=== PATIENT | male | born 1950 | race Caucasian/White ===

== ENCOUNTER 2021-07-22 22:40 | Inpatient (IN) | payer OTHER, MEDICAID ==
[~2021-07-22] VITALS: Ht 190.5 cm; Wt 113.4 kg
[~2021-07-22 22:40] MED LIST: AMIO200T66 PO; APIX5TAB PO; CARV25TA55 PO; CLOT15CR5 TP; FURO-149 PO; LISI20TA30 PO; THIA100T13 PO
[2021-07-22 23:07] VITALS: BP_SYST 135
--- NOTE | 2021-07-22 23:15 | NUR ---
Pt to bed 8 via EMS w/ c/o right hip pain s/p mechanical fall from 2nd step on stairs to ground. Normal skin color for rotation. Pt maintains full mobility of right leg. No external rotation or shortening of RLE
[2021-07-22 23:30] LABS: BASOPHILS % (AUTO) 0.4 % (0.0-2.0); EOSINOPHILS # (AUTO) 0.1 K/uL (0.0-0.4); EOSINOPHILS % (AUTO) 1.4 % (0.0-4.0); HEMATOCRIT 41.4 % (36-54); HEMOGLOBIN 14.3 g/dL (14.0-18.0); LYMPHOCYTES # (AUTO) 1.3 K/uL (1.0-5.5); LYMPHOCYTES % (AUTO) 16.3 % (20.5-51.5); MEAN CORPUSCULAR HEMOGLOBIN 30 pg (27-31); MEAN CORPUSCULAR HGB CONC 35 % (32-36); MEAN CORPUSCULAR VOLUME 88 fL (79.0-98.0); MONOCYTES # (AUTO) 0.4 K/uL (0.0-1.0); MONOCYTES % (AUTO) 4.6 % (1.7-9.3); NEUTROPHILS # (AUTO) 6.3 K/uL (1.8-7.7); NEUTROPHILS % (AUTO) 77.3 % (40.0-70.0); PLATELET COUNT (AUTO) 149 K/uL (130-430); RED BLOOD CELL COUNT(AUTO) 4.72 MIL/uL (4.2-6.2); RED CELL DISTRIBUTION WIDTH 14.1 % (9.0-15.0); WHITE BLOOD COUNT (AUTO) 8.2 K/uL (4.8-10.8)
--- NOTE | 2021-07-22 23:31 | NUR ---
Pt placed on crystal cutter. bed in low position. pulse oximetry on patient.
[2021-07-22 23:48] LABS: ANION GAP 6 (5-15); CALCIUM 8.1 mg/dL (8.4-11.0); CHLORIDE 104 mmol/L (98-107); CREATININE 0.96 mg/dL (0.55-1.30); GLUCOSE 150 mg/dL (70-99); POTASSIUM 3.6 mmol/L (3.5-5.1); SODIUM SERUM 139 mmol/L (136-145); UREA NITROGEN, BLOOD 17 mg/dL (8-21)
[2021-07-22 23:51] LABS: INR 1.1 (0.80-1.20); PROTHROMBIN TIME 11.8 SECS (9.5-12.5)
[2021-07-22 23:54] LABS: ALANINE AMINOTRANSFERASE 14 U/L (12-78); ALBUMIN 3.6 g/dL (3.4-4.8); ASPARTATE AMINOTRANSFERASE 12 U/L (10-37); TOTAL BILIRUBIN 1.2 mg/dL (0.0-1.0)
[2021-07-23] LABS: ALCOHOL, BLOOD < 3 mg/dL (<10)
[2021-07-23] MEDS ORDERED: MORPHINE 4 MG INJ. 4 MG/ML VIAL IVP ONE ×2 (02:15→04:15)
[2021-07-23] MEDS ORDERED: ONDANSETRON HCL 4 MG/2 ML VIAL IVP ONE (02:15)
[2021-07-23] MEDS ORDERED: MORPHINE 4 MG INJ. 4 MG/ML VIAL ONE (02:25)
[2021-07-23] MEDS ORDERED: D5NS 1,000 ML IV ONE (05:45)
--- NOTE | 2021-07-23 05:58 | NUR ---
Admit bed requested Patient will be admitted to care of Dr. Dawson Admitted to Tele unit. Diagnosis Hip Fracure Inpatient (Yes or No) yes Observation (Yes or No) no Orientation concerns or request close to nursing station (Yes or No) no Covid Status negative On vent or bipap no Isolation requirements no Needs a sitter no From Home (Yes or if No enter name of facility) yes Requires Dialysis (Yes or No) no Med Rec Completed (Yes of No) yes
[2021-07-23] MEDS ORDERED: MORPHINE 2 MG/ML INJ. SYRINGE IVP PRN ×2 (06:00→10:45)
--- NOTE | 2021-07-23 07:20 | NUR ---
Received report from YUNIOR Urias; assumed patient care at this time. Patient A/Ox4 and resting quietly. Vital signs within normal range. Pt aware his is awaiting a bed in tele. No acute distress noted.
[2021-07-23] MEDS ORDERED: guaiFENesin/DEXTROMETHORPHAN 10 ML UDC PO PRN (10:45)
[2021-07-23] MEDS ORDERED: ZOLPIDEM TARTRATE 5 MG TABLET PO PRN (10:45)
[2021-07-23] MEDS ORDERED: DOCUSATE SODIUM 100 MG/10 ML UDC PO PRN (10:45)
[2021-07-23] MEDS ORDERED: ONDANSETRON HCL 4 MG/2 ML VIAL IVP PRN (10:45)
[2021-07-23] MEDS ORDERED: FUROSEMIDE 40 MG TABLET PO ONE (11:00)
[2021-07-23] MEDS ORDERED: AMIODARONE HCL 200 MG TABLET PO ONE (11:00)
[2021-07-23] MEDS ORDERED: lisinopriL 20 MG TABLET PO ONE (11:00)
[2021-07-23] MEDS ORDERED: CARVEDILOL 25 MG TABLET (COREG) PO ONE (11:00)
[2021-07-23 11:34] LABS: INR 1.2 (0.80-1.20)
--- NOTE | 2021-07-23 11:39 | NUR ---
DR Sky at bedside.
[2021-07-23 11:43] LABS: ALANINE AMINOTRANSFERASE 20 U/L (12-78); ALBUMIN 3.6 g/dL (3.4-4.8); AMYLASE 36 U/L (0-100); ANION GAP 7 (5-15); ASPARTATE AMINOTRANSFERASE 11 U/L (10-37); CALCIUM 7.9 mg/dL (8.4-11.0); CHLORIDE 105 mmol/L (98-107); CHOLESTEROL 160 mg/dL (<200); CREATININE 0.82 mg/dL (0.55-1.30); GLUCOSE 132 mg/dL (70-99); HDL CHOLESTEROL 26 mg/dL (>45); LDL CHOLESTEROL 115 mg/dL (<100); LIPASE 71 U/L (73-393); PHOSPHORUS 3.3 mg/dL (2.7-4.5); POTASSIUM 4.2 mmol/L (3.5-5.1); SODIUM SERUM 141 mmol/L (136-145); TOTAL BILIRUBIN 1.5 mg/dL (0.0-1.0); TRIGLYCERIDES 90 mg/dL (30-150); UREA NITROGEN, BLOOD 15 mg/dL (8-21)
--- NOTE | 2021-07-23 12:00 | NUR ---
Placed call to OR and Dr Andrews re ETA for surgery and clarification re PO meds. Lasix to be held per Dr Andrews. Other meds to be administered PO with sips of water.
[2021-07-23 12:09] LABS: FREE T4 (FREE THYROXINE) 1.1 ng/dl (0.8-1.5); THYROID STIMULATING HORMONE 3.66 uIu/mL (0.36-3.74)
--- NOTE | 2021-07-23 12:18 | NUR ---
DR DAVIAL IN TO SEE PT FOR CONSULT
--- NOTE | 2021-07-23 12:23 | NUR ---
Dr Wylie at bedside
--- NOTE | 2021-07-23 13:19 | NUR ---
CONSULTATION PAGED/CALLED Reason for Consultation: [] R HIP FRACTURE Person Who was Notified: [] DR AB MCCALLUM Consulting Physician: [] DR AB MCCALLUM Contact Lens Manufacturer Specialty: [] ORTHO Ordering Physician: [] DR KWAN
[2021-07-23] MEDS: MORPHINE 4 MG INJ. 4 MG/ML VIAL IVP PRN ×3 (13:21→21:38)
[2021-07-23 13:30] VITALS: BP_SYST 151
--- NOTE | 2021-07-23 13:47 | NUR ---
Patient will be admitted to care of Dr Sky. Admitted to tele unit. Will go to room 117A. Belongings list completed. Complete and up to date summary report printed. Patient transport on gurney by RN. SBAR report to be given at bedside with opportunity for questions.
[2021-07-23 15:33] VITALS: BP_SYST 155
[2021-07-23 16:00] VITALS: BP_SYST 148
[2021-07-23 17:47] LABS: BILIRUBIN,URINE NEGATIVE (NEGATIVE); BLOOD, URINE NEGATIVE (NEGATIVE); CLARITY/URINE CLEAR (CLEAR); COLOR,URINE YELLOW (YELLOW); GLUCOSE,URINE NEGATIVE (NEGATIVE); KETONES,URINE NEGATIVE (NEGATIVE); LEUKOCYTE ESTERASE ,URINE NEGATIVE (NEGATIVE); NITRITE, URINE NEGATIVE (NEGATIVE); PROTEIN URINE NEGATIVE (NEGATIVE); UROBILINOGEN,URINE 0.2 (0.2-1.0)
--- NOTE | 2021-07-23 18:14 | NUR ---
Mr Andrews at the bedside, obtained informed consent for right hip replacement surgery. Risks and benefits discussed by . Also anesthesiologist at the bedside and informed consent obtained. Pt to have dinner but npo after 10pm. pt verbalized understanding. Will endorse to noc shift.
[2021-07-23 18:26] LABS: BARBITURATE, URINE NEGATIVE (NEG <=200); BENZODIAZEPINE, URINE NEGATIVE (NEG <=150); CANNABINOID, URINE NEGATIVE (NEG <=50); COCAINE, URINE NEGATIVE (NEG <=150); METHAMPHETAMINES SCREEN,URINE NEGATIVE (NEG <=500); OPIATE, URINE POSITIVE (NEG <=100); PHENCYCLIDINE SCREEN,URINE NEGATIVE (NEG <=25); UR TRICYCLIC ANTIDEPRESSANTS NEGATIVE (NEG <=300); URINE AMPHETAMINE NEGATIVE (NEG <=500); URINE METHADONE NEGATIVE (NEG <=200); URINE OXYCODONE SCREEN NEGATIVE (NEG <=100); URINE PROPOXYPHENE SCREEN NEGATIVE (NEG <=300)
[2021-07-23 19:46] VITALS: BP_SYST 154
[2021-07-23] MEDS: CARVEDILOL 25 MG TABLET (COREG) PO SCH (20:52)
[2021-07-23] MEDS: AMIODARONE HCL 200 MG TABLET PO SCH (20:53)
[2021-07-23 23:26] VITALS: BP_SYST 135
[2021-07-24] VITALS (7 sets, daily range): BP systolic 100–190
--- NOTE | 2021-07-24 01:50 | NUR ---
1930 Pt. in bed, aaox4, call light in reach 0 NPO, ivf at 70ml/hr until bag finished, vss 0030 Pt. sleeping, medicated for pain prn with good results. 0200 Pt. resting quietly, npo, call light in reach, denies pain
[2021-07-24] MEDS: MORPHINE 4 MG INJ. 4 MG/ML VIAL IVP PRN ×3 (02:34→18:37)
--- NOTE | 2021-07-24 06:17 | NUR ---
0600 Pt. needs met this shift, vss, given chg bath, clean gown in place. Report given to YUNIOR Chow for O.R. transport, pt. leaving now for O.R. Pt. is with pt. Pt. is aaox4 , no acute distress.
[2021-07-24] MEDS ORDERED: PROPOFOL 200MG/ 20ML VIAL (DIPRIVAN) IV ONE (06:30)
[2021-07-24] MEDS ORDERED: PHENYLEPHRINE HCL 10 MG/ML VIAL (NEOSYNEPHRINE) ONE (06:30)
[2021-07-24] MEDS ORDERED: NS IRRIG SOLN 1000 ML IR ONE (06:30)
[2021-07-24] MEDS ORDERED: NS 1000 ML IV.SOLN IV ONE (06:30)
[2021-07-24] MEDS ORDERED: BUPIVACAINE /PF 0.25% 30 ML VIAL INJ ONE (06:30)
[2021-07-24] MEDS ORDERED: CEFAZOLIN 2 GM IVPB PREMIX 50 ML IV ONE (06:30)
[2021-07-24] MEDS ORDERED: ONDANSETRON HCL 4 MG/2 ML VIAL IVP PRN (07:15)
[2021-07-24] MEDS ORDERED: METOCLOPRAMIDE HCL 10 MG/2 ML VIAL IVP PRN (07:15)
[2021-07-24] MEDS ORDERED: fentaNYL CITRATE/PF 100 MCG/2 ML AMP IVP PRN ×2 (07:15)
[2021-07-24] MEDS: FUROSEMIDE 40 MG TABLET PO SCH (09:00)
[2021-07-24] MEDS: lisinopriL 20 MG TABLET PO SCH (09:00)
[2021-07-24] MEDS: AMIODARONE HCL 200 MG TABLET PO SCH ×2 (09:00→21:00)
[2021-07-24] MEDS: PANTOPRAZOLE SODIUM 40 MG TAB PO SCH (09:00)
[2021-07-24] MEDS ORDERED: POTASSIUM CHLORIDE 20 MEQ TAB.PRT.SR PO PRN (09:00)
[2021-07-24] MEDS: CARVEDILOL 25 MG TABLET (COREG) PO SCH ×2 (09:00→21:24)
[2021-07-24 10:58] LABS: BASOPHILS % (AUTO) 0.3 % (0.0-2.0); EOSINOPHILS # (AUTO) 0.1 K/uL (0.0-0.4); EOSINOPHILS % (AUTO) 1.3 % (0.0-4.0); HEMATOCRIT 39.4 % (36-54); HEMOGLOBIN 13.3 g/dL (14.0-18.0); LYMPHOCYTES # (AUTO) 1.3 K/uL (1.0-5.5); LYMPHOCYTES % (AUTO) 13.1 % (20.5-51.5); MEAN CORPUSCULAR HEMOGLOBIN 30 pg (27-31); MEAN CORPUSCULAR HGB CONC 34 % (32-36); MEAN CORPUSCULAR VOLUME 89 fL (79.0-98.0); MONOCYTES # (AUTO) 0.6 K/uL (0.0-1.0); MONOCYTES % (AUTO) 6.4 % (1.7-9.3); NEUTROPHILS # (AUTO) 7.8 K/uL (1.8-7.7); NEUTROPHILS % (AUTO) 78.9 % (40.0-70.0); PLATELET COUNT (AUTO) 132 K/uL (130-430); RED BLOOD CELL COUNT(AUTO) 4.44 MIL/uL (4.2-6.2); RED CELL DISTRIBUTION WIDTH 14.2 % (9.0-15.0); WHITE BLOOD COUNT (AUTO) 9.9 K/uL (4.8-10.8)
[2021-07-24 11:35] LABS: ANION GAP 7 (5-15); CALCIUM 7.4 mg/dL (8.4-11.0); CHLORIDE 102 mmol/L (98-107); CREATININE 0.86 mg/dL (0.55-1.30); GLUCOSE 189 mg/dL (70-99); POTASSIUM 4.3 mmol/L (3.5-5.1); SODIUM SERUM 137 mmol/L (136-145); UREA NITROGEN, BLOOD 13 mg/dL (8-21)
[2021-07-24] MEDS: ACETAMINOPHEN 500 MG TABLET PO PRN (19:54)
[2021-07-24] MEDS: APIXABAN 2.5 MG TABLET PO SCH (21:25)
[2021-07-24] MEDS: HYDROcodone/ACETAMIN 7.5-325 MG TAB PO PRN (21:26)
[2021-07-24] MEDS ORDERED: KETOROLAC TROMETHAMINE 15 MG VIAL IVP ONE (23:45)
[2021-07-25] VITALS: BP_SYST 108
--- NOTE | 2021-07-25 02:21 | NUR ---
1930 Pt. in bed, aaox4, no acute distress, fever is noted, given tylenol 500mg po 2200 Fever still noted, cooling measures started, call to Dr. Andrews who deferred to primary Md. Dr. Sky gave order for one time dose of toradol 15mg ivp for fever if still noted later. 0030 Pt. given toradol 15mg ivp for fever, pain is noted to r hip. 0200 Pt. sleeping, call light in reach, temp wnl.
[2021-07-25 05:40] LABS: BASOPHILS % (AUTO) 0.5 % (0.0-2.0); EOSINOPHILS # (AUTO) 0.2 K/uL (0.0-0.4); EOSINOPHILS % (AUTO) 2.1 % (0.0-4.0); LYMPHOCYTES # (AUTO) 1.9 K/uL (1.0-5.5); MONOCYTES # (AUTO) 0.8 K/uL (0.0-1.0); MONOCYTES % (AUTO) 7.8 % (1.7-9.3)
[2021-07-25 05:53] LABS: BASOPHILS # (AUTO) 0.1 K/uL (0.0-0.2); HEMATOCRIT 39.6 % (36-54); HEMOGLOBIN 13.5 g/dL (14.0-18.0); LYMPHOCYTES % (AUTO) 19.4 % (20.5-51.5); MEAN CORPUSCULAR HEMOGLOBIN 30 pg (27-31); MEAN CORPUSCULAR HGB CONC 34 % (32-36); MEAN CORPUSCULAR VOLUME 89 fL (79.0-98.0); NEUTROPHILS % (AUTO) 70.2 % (40.0-70.0); PLATELET COUNT (AUTO) 126 K/uL (130-430); RED BLOOD CELL COUNT(AUTO) 4.45 MIL/uL (4.2-6.2); RED CELL DISTRIBUTION WIDTH 14.3 % (9.0-15.0)
--- NOTE | 2021-07-25 06:19 | NUR ---
0600 Pt. needs met this shift, vss, no temp at this time, pt. states he does not feel like he has to void, denies discomfort in bladder area, will endorse to day shift to monitor. No pain noted, call light in reach
[2021-07-25 08:00] VITALS: BP_SYST 81
--- NOTE | 2021-07-25 08:00 | NUR ---
Initial Notes patient awake, alert, and oriented. Patient denies any pain. No distress noted. No s/s of SOB. Spo2 is at 95% on 4LO2 via NC. Patient is eating breakfast, HOB is elevated. Blood pressure low, MD aware. No s/s of hypotension noted. Patient states, "feels fine." Denies dizziness. Safety precautions in place and call light within reach.
[2021-07-25 08:10] LABS: ANION GAP 8 (5-15); CHLORIDE 102 mmol/L (98-107); CREATININE 0.96 mg/dL (0.55-1.30); GLUCOSE 131 mg/dL (70-99); POTASSIUM 4.8 mmol/L (3.5-5.1); SODIUM SERUM 135 mmol/L (136-145); UREA NITROGEN, BLOOD 20 mg/dL (8-21)
[2021-07-25] MEDS: FUROSEMIDE 40 MG TABLET PO SCH (09:00)
[2021-07-25] MEDS: CARVEDILOL 25 MG TABLET (COREG) PO SCH ×2 (09:00→21:41)
[2021-07-25] MEDS: lisinopriL 20 MG TABLET PO SCH (09:00)
[2021-07-25] MEDS: AMIODARONE HCL 200 MG TABLET PO SCH ×2 (09:14→21:40)
[2021-07-25] MEDS: PANTOPRAZOLE SODIUM 40 MG TAB PO SCH (09:15)
[2021-07-25] MEDS ORDERED: NS 500 ML IV ONE (09:15)
[2021-07-25] MEDS: APIXABAN 2.5 MG TABLET PO SCH ×2 (09:16→21:42)
--- NOTE | 2021-07-25 09:20 | NUR ---
Notes Patient still has low blood pressure. Dr. Dawson aware, orders received. Bolus administered. Will continue to monitor blood pressure.
[2021-07-25 11:31] VITALS: BP_SYST 116
--- NOTE | 2021-07-25 12:00 | NUR ---
Notes Vital signs stable, within normal value. Patient denies any pain, distress, or discomfort. No s/s of SOB. Patient is eating lunch, HOB elevated. Safety precautions in place and call light within reach.
[2021-07-25] MEDS: HYDROcodone/ACETAMIN 7.5-325 MG TAB PO PRN ×2 (13:06→21:41)
--- NOTE | 2021-07-25 16:00 | NUR ---
Notes Patient is resting. Treatment on incision site done. Patient in a comfortable position. No s/s of distress noted. Patient on Room air, VS within range. Safety precautions in place and call light within reach.
[2021-07-25 16:08] VITALS: BP_SYST 112
--- NOTE | 2021-07-25 18:03 | NUR ---
PHYSICAL THERAPY CO-SIGN The Physical Therapy Progress Notes documented by Forestry Conservation Worker have been reviewed. Reviewed/Co-Signed by: Reza Pedersen Documentation Done by: YESICA COLEMAN PTA Addendum: 07/25/21 at 1804 by Reza Pedersen PT Amended: Links added.
--- NOTE | 2021-07-25 18:48 | NUR ---
CLOSING NOTES PATIENT IS EATING DINNER, NO S/S OF DISTRESS. DENIES ANY PAIN AT THIS TIME. NO SOB NOTED. LAST VITAL SIGNS WITHIN RANGE. SAFETY PRECAUTIONS IN PLACE AND CALL LIGHT WITHIN RANGE. FAMILY AT BEDSIDE.
[2021-07-25 21:28] VITALS: BP_SYST 136
[2021-07-26] MEDS: ACETAMINOPHEN 500 MG TABLET PO PRN (00:33)
[2021-07-26 01:05] VITALS: BP_SYST 133
[2021-07-26 06:41] LABS: BASOPHILS % (AUTO) 0.6 % (0.0-2.0); EOSINOPHILS # (AUTO) 0.2 K/uL (0.0-0.4); EOSINOPHILS % (AUTO) 2.9 % (0.0-4.0); HEMATOCRIT 32.4 % (36-54); HEMOGLOBIN 11.1 g/dL (14.0-18.0); LYMPHOCYTES # (AUTO) 1.3 K/uL (1.0-5.5); LYMPHOCYTES % (AUTO) 21.2 % (20.5-51.5); MEAN CORPUSCULAR HEMOGLOBIN 30 pg (27-31); MEAN CORPUSCULAR HGB CONC 34 % (32-36); MEAN CORPUSCULAR VOLUME 88 fL (79.0-98.0); MONOCYTES # (AUTO) 0.6 K/uL (0.0-1.0); NEUTROPHILS # (AUTO) 4.2 K/uL (1.8-7.7); NEUTROPHILS % (AUTO) 66.3 % (40.0-70.0); PLATELET COUNT (AUTO) 98 K/uL (130-430); RED BLOOD CELL COUNT(AUTO) 3.66 MIL/uL (4.2-6.2); WHITE BLOOD COUNT (AUTO) 6.3 K/uL (4.8-10.8)
[2021-07-26 06:58] LABS: ANION GAP 8 (5-15); CALCIUM 7.5 mg/dL (8.4-11.0); CHLORIDE 100 mmol/L (98-107); CREATININE 0.72 mg/dL (0.55-1.30); GLUCOSE 172 mg/dL (70-99); POTASSIUM 3.6 mmol/L (3.5-5.1); SODIUM SERUM 132 mmol/L (136-145); UREA NITROGEN, BLOOD 20 mg/dL (8-21)
[2021-07-26 08:52] VITALS: BP_SYST 117
[2021-07-26] MEDS: FUROSEMIDE 40 MG TABLET PO SCH (09:44)
[2021-07-26] MEDS: PANTOPRAZOLE SODIUM 40 MG TAB PO SCH (09:44)
[2021-07-26] MEDS: AMIODARONE HCL 200 MG TABLET PO SCH ×2 (09:44→20:35)
[2021-07-26] MEDS: CARVEDILOL 25 MG TABLET (COREG) PO SCH ×2 (09:45→20:35)
[2021-07-26] MEDS: APIXABAN 2.5 MG TABLET PO SCH ×2 (09:46→20:38)
[2021-07-26 11:32] VITALS: BP_SYST 138
[2021-07-26 15:44] VITALS: BP_SYST 136
[2021-07-26] MEDS: HYDROcodone/ACETAMIN 7.5-325 MG TAB PO PRN ×2 (16:20→20:35)
--- NOTE | 2021-07-26 17:13 | NUR ---
PHYSICAL THERAPY CO-SIGN The Physical Therapy Progress Notes documented by Tire Man have been reviewed. Reviewed/Co-Signed by: Reza Pedersen Documentation Done by: RICKY COLEMAN PTA Addendum: 07/26/21 at 1714 by Reza Pedersen PT Amended: Links added.
--- NOTE | 2021-07-26 18:09 | NUR ---
Patient improving, improved mobility and pain management. Patient worked with PT and shows signs of healing. Patient states he does not want to go to a rehab center and want to go home when discharged.
[2021-07-26 20:29] VITALS: BP_SYST 134
--- NOTE | 2021-07-26 21:00 | NUR ---
PT C/O FEELING CONSTIPATED. OFFERED PT PRN STOOL SOFTENER. PT REFUSED.
[2021-07-27 01:25] VITALS: BP_SYST 137
[2021-07-27 06:39] LABS: BASOPHILS % (AUTO) 0.8 % (0.0-2.0); EOSINOPHILS # (AUTO) 0.2 K/uL (0.0-0.4); EOSINOPHILS % (AUTO) 3.1 % (0.0-4.0); HEMATOCRIT 31.7 % (36-54); HEMOGLOBIN 11.1 g/dL (14.0-18.0); LYMPHOCYTES % (AUTO) 16.2 % (20.5-51.5); MEAN CORPUSCULAR HEMOGLOBIN 31 pg (27-31); MEAN CORPUSCULAR HGB CONC 35 % (32-36); MEAN CORPUSCULAR VOLUME 87 fL (79.0-98.0); MONOCYTES # (AUTO) 0.6 K/uL (0.0-1.0); MONOCYTES % (AUTO) 9.4 % (1.7-9.3); NEUTROPHILS # (AUTO) 4.1 K/uL (1.8-7.7); NEUTROPHILS % (AUTO) 70.5 % (40.0-70.0); PLATELET COUNT (AUTO) 128 K/uL (130-430); RED BLOOD CELL COUNT(AUTO) 3.63 MIL/uL (4.2-6.2); RED CELL DISTRIBUTION WIDTH 14.2 % (9.0-15.0); WHITE BLOOD COUNT (AUTO) 5.9 K/uL (4.8-10.8)
[2021-07-27 07:37] LABS: ANION GAP 6 (5-15); CALCIUM 7.3 mg/dL (8.4-11.0); CHLORIDE 101 mmol/L (98-107); CREATININE 0.73 mg/dL (0.55-1.30); GLUCOSE 137 mg/dL (70-99); POTASSIUM 3.7 mmol/L (3.5-5.1); SODIUM SERUM 134 mmol/L (136-145); UREA NITROGEN, BLOOD 15 mg/dL (8-21)
[2021-07-27 08:55] VITALS: BP_SYST 131
[2021-07-27] MEDS: FUROSEMIDE 40 MG TABLET PO SCH (09:31)
[2021-07-27] MEDS: PANTOPRAZOLE SODIUM 40 MG TAB PO SCH (09:31)
[2021-07-27] MEDS: AMIODARONE HCL 200 MG TABLET PO SCH (09:32)
[2021-07-27] MEDS: CARVEDILOL 25 MG TABLET (COREG) PO SCH (09:32)
[2021-07-27] MEDS: APIXABAN 2.5 MG TABLET PO SCH (09:33)
[2021-07-27 12:24] VITALS: BP_SYST 140
--- NOTE | 2021-07-27 12:57 | NUR ---
[facility]/HCP KORI BETANCOURT INFORMED THAT SNF PLACEMENT IS WITH [facility], [address] I BABATUNDEUBLANHOMERO WILL DIRECTOR OF QUALITY IMPROVEMENT PT AT 1500.
[2021-07-27] MEDS: HYDROcodone/ACETAMIN 7.5-325 MG TAB PO PRN (13:52)
--- NOTE | 2021-07-27 15:21 | NUR ---
patient was picked up and transferred to SNF. Patient stable at the time of DC, minimal pain post norco. Patient ambualted to PT earlier in the day. Being transferred for continued PT treatment.
--- NOTE | 2021-07-27 17:27 | NUR ---
[facility] FOR [facility] CALLED TO FAX THE HCP SPECIAL ORDER OF [facility] MD DR KWAN. TWO TRANSMITTAL CONFIRMATIONS WERE RECEIVED.. THE 2ND ONE RECEIVED BY NAZ WILL WALK THE FAXED ORDER TO [facility] IN THE 2ND FLOOR WHERE THE PT IS LOCATED ([address]), TO MAKE SURE THAT ESTE[facility]IA THE NURSE WILL GET THE ORDER.
== END 2021-07-27 18:12 | DRG 481 ==
LOC: SED 22:40 → UNDOADMIN 07-23 05:45 → STU 07-23 05:45
PROVIDERS: ADMIT Internal Medicine Hospice and Palliative Medicine; ATTEND Internal Medicine Hospice and Palliative Medicine
PROC: 0QS606Z Reposition Right Upper Femur with Intramedullary Internal Fixation Device, Open Approach (ICD-10-PCS; principal; 2021-07-24 07:21)
DX: S72.001A Fracture of unspecified part of neck of right femur, initial encounter for closed fracture (principal); I48.92 Unspecified atrial flutter; I42.0 Dilated cardiomyopathy; I48.20 Chronic atrial fibrillation, unspecified; Z20.822 Contact with and (suspected) exposure to COVID-19; D69.9 Hemorrhagic condition, unspecified; W01.0XXA Fall on same level from slipping, tripping and stumbling without subsequent striking against object, initial encounter; E78.5 Hyperlipidemia, unspecified; E66.9 Obesity, unspecified; I11.0 Hypertensive heart disease with heart failure; I50.9 Heart failure, unspecified; Z79.899 Other long term (current) drug therapy; Y93.89 Activity, other specified; Y92.89 Other specified places as the place of occurrence of the external cause; Y99.8 Other external cause status; Z68.31 Body mass index [BMI] 31.0-31.9, adult
CPT/HCPCS: 36415; 71045; 72170-TC; 73502; 76000; 80048; 80053; 80061; 80307; 81003; 82150; 83036; 83605; 83690; 83735; 83880; 84100; 84439; 84443; 85025; 85610-TC; 85730-TC; 86886; 86900; 86901; 87081; 93005; 93306; 96374; 96375; 97110-GP; 97116-GP; 97163-GP; 97530-GP; 99285; C1713; G0378; G0482; J0690; J1885; J2270; J2370; J2405; J2704; J3490; J7030